=== PATIENT | female | born 1970 | race Caucasian/White ===

== ENCOUNTER 2017-05-25 18:19 | Emergency (ER) | payer BC ==
[2017-05-25 18:44] VITALS: BP 141/56
[2017-05-25] MEDS ORDERED: HYDROcodone/ACETAMINOPHEN 1 EACH TABLET PO ONE (19:43)
--- NOTE | 2017-05-25 19:50 | ERNOTE ---
Upper Extremity HPI - Narrative Date of Service: 05/25/17 - General Extremities Pain Location: forearm: left Time Seen by Provider: 05/25/17 19:30 Source: patient, family Exam Limitations: no limitations - Immun/Allergies/Home Medications Immunizations: IMMUNIZATION HX Immunizations Up to Date Yes History of Influenza Vaccine Yes Hx Pneumococcal Vaccination No Allergies/Adverse Reactions: Allergies Allergy/AdvReac Type Severity Reaction Status Date / Time venom-honey bee Allergy Severe Anaphylaxis Verified 10/13/15 11:50 [bee venom (honey bee)] venom-wasp [Wasp Venom] Allergy Severe Anaphylaxis Verified 10/13/15 11:50 zolpidem tartrate Allergy Unknown Verified 10/13/15 11:50 [From Ambien] Home Medications: HOME MEDICATIONS SUMAtriptan SUCCINATE [Imitrex] 100 mg PO Q2H PRN 09/20/15 [Last Taken Unknown] Vit D3/Folic Acid/B2/B6/B12 [Folgard Tablet] 1 each PO DAILY 10/13/15 [Last Taken Unknown] Darifenacin Hydrobromide [Darifenacin ER] 7.5 mg PO DAILY 05/25/17 [Last Taken Unknown] Eszopiclone [Lunesta] 3 mg PO HS 05/25/17 [Last Taken Unknown] HYDROcodone/ACETAMINOPHEN [[place] 5-325] 1 each PO Q4H PRN #30 tablet 05/25/17 [ Last Taken Unknown] - History of Present Illness Narrative: Is a 46-year-old female who states she was walking at altitude in [place] yesterday when she became dizzy. She says she fell down striking her left forearm, proximal to the mid point, on an object on the ground. She says that it swelled up immediately and she had significant pain. She was actually vacationing with an orthopedic surgeon who is her orthopedic surgeon, and he told her that it could be broken. He recommended that she get an x-ray performed. The patient is complaining of significant pain, bruising. Difficulty with moving her wrist muscles due to pain. No numbness or tingling is noted. She did not hit her head or lose consciousness. She has no other complaints. Occurred: yesterday Location of Incident: park Severity: severe Method of Injury: Reports: direct blow Reason for Fall: Reports: lightheaded Loss of Consciousness: Reports: no loss of consciousness Modifying Factors - (Improves): Reports: immobilization Modifying Factors - (Worsens): Reports: jarring, movement Associated Symptoms: Denies: tingling, weakness, numbness distally, loss of feeling, loss of power (rt arm), loss of power (lt arm) Other Injuries: Reports: none Prior Treament: Denies: recently seen, treated by physician Review of Systems - Narrative Narrative: Except as above the remainder of the review of systems is otherwise negative. - Review of Systems Constitutional: Present: no symptoms reported EYE: Present: no symptoms reported ENT: Present: no symptoms reported Respiratory: Present: no symptoms reported Cardiology: Present: no symptoms reported Gastrointestinal/Abdominal: Present: no symptoms reported Musculoskeletal: Present: See HPI Skin: Present: See HPI, other - bruising to the proximal left forearm Neurological: Present: no symptoms reported Endocrine: Present: no symptoms reported Hematologic/Lymphatic: Present: no symptoms reported Psych: Present: no symptoms reported All Other Systems: All systems neg except as marked - Patient's Past Medical History Patient History - Medical: Migraines Patient History - Cardiac/Respiratory: No pertinent hx Patient History - Cancer: No Hx of Cancer Patient History - Surgical Procedures: Appendectomy, Cholecystectomy, , T & A Patient History - Other: None LMP (females 10-50): 1 month - Social History Living Situations: home Abuse History: No History of abuse Psych History: No pertinent hx Smoking Status: Never smoker Alcohol Use: occasionally Drug Use: none - Immunizations Immunizations Up to Date: Yes Hx Pneumococcal Vaccination: No History of Influenza Vaccine: Yes Physical Exam - Physical Exam General Appearance: Present: wd/wn, alert, mild distress, other - distress due to pain Eye Exam: Normal inspection: bilateral Ears, Nose, Throat: Present: normal ENT inspection Neck: Present: normal inspection, nontender Respiratory: Present: no respiratory distress, normal breath sounds, no accessory muscle use, chest nontender, lungs clear Cardiovascular/Chest: Present: regular rate, rhythm, no murmur Peripheral Pulses: N=norm/S=strong/W=weak/B=bound/A=absent: Radial (L): Normal Gastrointestinal/Abdominal: Present: normal bowel sounds, nontender Back Exam: Present: normal inspection, normal range of motion Extremity Exam: Present: other - patient has a large contusion present on the lateral aspect of the left forearm. This is proximal to the mid point. There is swelling in the area. There is ecchymosis around the edge of the swelling. The affected areas approximately 6 cm x 10 cm. Palpation here causes exquisite pain. No pain with compression of the bones distally. Able to move fingers limited by pain sensation intact Neurological Exam: Present: alert, oriented, normal mood/affect, no motor/ sensory deficits Skin Exam: Present: other - as described in the extremity exam Lymphatic Exam: Present: no adenopathy ED Progress - Vital Signs Patient's Vital Signs:: I have reviewed the patient's vital signs. Vital Signs: Vital Signs 05/25/17 18:41 Temperature 36.9 C Pulse Rate 69 Respiratory 16 Rate Blood Pressure 141/56 O2 Sat by Pulse 99 Oximetry - X-Ray X-Ray #1 X-Ray: forearm - patient has a linear lucency in the proximal left radius which may represent a fracture. This is certainly where she is most tender. No other fractures are noted. X-Ray #2 X-Ray: wrist Interpretation: Interp. by me X-ray Comments: No definite fractures or dislocations are noted. - Progress/Reassessment Chief Complaint: Upper Extremity Injury/Problem Progress:: Improved Progress Note-Subjective: 05/25/17 20:10 Pain is better Plan - Plan Plan: The patient appears to have a linear lucency within the proximal radius which may indeed represent a fracture. She certainly has mechanism and physical findings. I believe placing her in a sugar tong splint would be appropriate. She will be given pain medicine and a referral to orthopedics. She will be given a sling. Departure Clinical Impression: Radius neck fracture - Departure Disposition: Home self-care Condition: Stable Instructions: Radial Fracture Additional Instructions: We discussed, I do see a lucency within the bone which may be a fracture. Consequently I have placed a splint. He should keep this on an QRS seen by the orthopedics doctor for follow-up. He may take the prescribed [place] to help with pain. Do not drive or operate machinery while taking this. I want you to call your orthopedic doctor, tell them you were seen in the ER, and set up a follow-up appointment. Certainly if he develop any new worrisome symptoms he should return to the ER immediately. Referrals: Lorenzo Miller MD [Primary Care Provider] - Prescriptions: HYDROcodone/ACETAMINOPHEN [[place] 5-325] 1 each PO Q4H PRN #30 tablet PRN Reason: Pain
[2017-05-25] MEDS ORDERED: HYDROcodone/ACETAMINOPHEN 1 EACH TABLET ONE (20:17)
== END 2017-05-25 20:21 | disposition home or self-care (01) ==
LOC: ER 18:19
PROC: 2W3FX1Z Immobilization of Left Hand using Splint (ICD-10-PCS; principal; 2017-05-25)
DX: M84.434A Pathological fracture, left radius, initial encounter for fracture (principal); W18.39XA Other fall on same level, initial encounter; Y93.01 Activity, walking, marching and hiking; Y92.830 Public park as the place of occurrence of the external cause